=== PATIENT | female | born 1950 | race Caucasian/White ===

== ENCOUNTER 2018-02-07 07:41 | Outpatient (CLI) | payer OTHER | END 2018-02-07 07:43 | disposition home or self-care (01) | LOC: SONOGRAMA 07:41 | DX: E04.1 Nontoxic single thyroid nodule (principal) ==

== ENCOUNTER → 2020-12-25 | Day surgery (SDC) | payer OTHER ==
[~2020-12-25] MED LIST: ATORVASTATIN CA10 MG PO; BONIVA150 MG PO; ELIQUIS2.5 MG PO; GABAPENTIN300 M2 PO; OCUVITE WITH L1 EACH PO; [UNRECOGNIZED DRUG - OTHER] PO
== END | disposition home or self-care (01) ==
LOC: ADM 12-23 07:15 → CIR.AMB 07:00
PROVIDERS: ATTEND Specialist
DX: L72.0 Epidermal cyst (principal); Z20.822 Contact with and (suspected) exposure to COVID-19